=== PATIENT | female | born 1935 | race Caucasian/White ===

== ENCOUNTER 2017-02-09 08:37 | Inpatient (IN) | payer MEDICAID ==
--- NOTE | 2017-02-09 09:05 | EDM.PDOC ---
ED HPI GENERAL MEDICAL PROBLEM - General Chief Complaint: General Stated Complaint: hematuria Time Seen by Provider: 02/09/17 09:00 Source of Information: Reports: Patient, [facility] records History Limitations: Reports: No limitations - History of Present Illness INITIAL COMMENTS - FREE TEXT/NARRATIVE: 81 YO WF with history of atrial fibrillation on Coumadin presents to ER with painless hematuria x 1 day. [facility] reports pt has had an elevated INR x 1 week and coumadin had been held but this am she was noticed to have hematuria. Pt also with recent history of UTI and remote history of kidney stones. Pt has an appointment with her urologist in [place] february 24 for further evaluation but was sent to ER for immediate treatment. Pt denies dizziness, palpatations or shortness of breath. Onset: today Onset Date: 02/09/17 Onset Time: 09:32 Duration: Day(s): (1) Severity: mild Improves with: Reports: None Worsens with: Reports: None Associated Symptoms: Reports: no other symptoms - Related Data Allergies Allergy/AdvReac Type Severity Reaction Status Date / Time cephalexin Allergy Unknown unknown Verified 02/09/17 08:57 amiodarone Allergy Cannot Verified 02/09/17 08:57 Remember metronidazole [From Flagyl] Allergy Cannot Verified 02/09/17 08:57 Remember Home Meds: Home Meds Acetaminophen [Tylenol] 650 mg PO Q4H PRN 09/25/15 [History] Allopurinol [Zyloprim] 150 mg PO DAILY 09/25/15 [History] Cholecalciferol (Vitamin D3) [Vitamin D3] 2,000 unit PO DAILY 09/25/15 [History] Digoxin [Lanoxin] 125 mcg PO DAILY 09/25/15 [History] L.acidoph,Paracasei, B.lactis [Probiotic] 2 each PO BID 09/25/15 [History] Latanoprost [Xalatan 0.005% Ophth Soln] 1 drop EYEBOTH BEDTIME 09/25/15 [History ] Levothyroxine Sodium [Synthroid] 137 mcg PO SUTUTHSA@0700 09/25/15 [History] Magnesium Oxide 500 mg PO 1200,2100 09/25/15 [History] Megestrol [Megace] 40 mg PO QID 09/25/15 [History] Metoprolol Succinate [Toprol XL] 25 mg PO DAILY 09/25/15 [History] Multivitamin [Daily Gabriel] 1 tab PO DAILY@1200 09/25/15 [History] Potassium Chloride [Klor-Con M20] 20 meq PO WITHMEALSANDBED 09/25/15 [History] Antacid- Stock 15 ml PO Q6H PRN 04/22/16 [History] Levothyroxine 150 mcg PO MOWEFR@0700 04/22/16 [History] Phytonadione [Vitamin K] 400 mcg PO DAILY 04/22/16 [History] Cranberry Conc/C/Bacill Coag [Cranberry Tablet] 500 mg PO BID 02/09/17 [History] Past Medical History HEENT History: Reports: Other (see below) Other HEENT History: tinnitus right ear Cardiovascular History: Reports: Afib, Heart Failure, Hypertension Respiratory History: Reports: Bronchitis, recurrent Gastrointestinal History: Reports: Chronic constipation, Chronic diarrhea, Other (see below) Other Gastrointestinal History: ventral hernia Other Genitourinary History: Stage 3 chronic kidney disease Other OB/BYN History: endometrial CA Musculoskeletal History: Reports: Other (see below) Other Musculoskeletal History: muscle weakness Neurological History: Reports: Other (see below) Other Neuro History: dizziness Endocrine/Metabolic History: Reports: Hypothyroidism Oncologic (Cancer) History: Reports: Other (see below) Other Oncologic History: 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 - Infectious Disease History Infectious Disease History: Reports: Chicken pox, Measles, Mumps, Pertussis ( whooping cough) - Past Surgical History HEENT Surgical History: Reports: Cataract surgery Cardiovascular Surgical History: Reports: None GI Surgical History: Reports: None Female Surgical History: Reports: None Social & Family History - Family History Family Medical History: Noncontributory - Tobacco Use Smoking Status *Q: Never Smoker Second Hand Smoke Exposure: No - Recreational Drug Use Recreational Drug Use: No ED ROS GENERAL - Review of Systems Review Of Systems: See Below Constitutional: Reports: no symptoms HEENT: Reports: No symptoms Respiratory: Reports: No Symptoms Cardiovascular: Reports: No symptoms Endocrine: Reports: no symptoms GI/Abdominal: Reports: No symptoms : Reports: hematuria. Denies: dysuria, flank pain, frequency, pain, urgency Musculoskeletal: Reports: no symptoms Skin: Reports: no symptoms Neurological: Reports: No Symptoms Psychiatric: Reports: No symptoms Hematologic/Lymphatic: Reports: no symptoms ED EXAM, GENERAL - Physical Exam Exam: See Below Exam Limited By: No limitations General Appearance: alert, WD/WN, no apparent distress Ears: normal external exam, normal canal, hearing grossly normal, normal TMs Ear Exam: bilateral ear: auricle normal, canal normal, TM normal Nose: normal inspection, normal mucosa, no blood Throat/Mouth: Normal inspection, Normal lips, Normal teeth, Normal gums, Normal oropharynx, Normal voice, No airway compromise Head: atraumatic, normocephalic Neck: normal inspection, supple, non-tender, full range of motion Respiratory/Chest: no respiratory distress, lungs clear, normal breath sounds, no accessory muscle use, chest non-tender Cardiovascular: normal peripheral pulses, regular rate, rhythm, no edema, no gallop, no JVD, no murmur, no rub GI/Abdominal: normal bowel sounds, soft, non tender, no organomegaly, no distention, no abnormal bruit, no mass Extremities: normal inspection, normal range of motion, non-tender, normal capillary refill, no pedal edema Neurological: alert, oriented, CN II-XII intact, normal cognition, normal gait, normal reflexes, no motor/sensory deficits Psychiatric: normal affect, normal mood Skin Exam: Warm, Dry, Intact, Normal color, No rash Lymphatic: no adenopathy EKG INTERPRETATION EKG Date: 02/09/17 Time: 10:23 Rhythm: NSR Rate (beats/min): 87 [place]: normal P-wave: present QRS: normal ST-T: normal QT: normal Comparison: NA - no prior EKG Course - Vital Signs Last Recorded V/S: Last Vital Signs Temp 36.6 C 02/09/17 08:55 Pulse 82 02/09/17 08:55 Resp 18 02/09/17 08:55 BP 129/64 02/09/17 08:55 Pulse Ox 97 02/09/17 08:55 - Orders/Labs/Meds Orders: Active Orders 24 hr Category Date Time Status EKG 12 Lead [EK] Routine Ther 02/09/17 10:15 Stop Req Medication Orders Sodium Chloride (Normal Saline) 1,000 mls @ 125 mls/hr IV ASDIRECTED MADIE Nitrofurantoin Macrocrystals (Macrobid) 100 mg PO BID MADIE Phytonadione (Aquamephyton) 5 mg SUBCUT ONETIME ONE Stop: 02/09/17 11:24 Sodium Chloride (Syrex Flush) 5 ml FLUSH Q8HR PRN PRN Reason: Keep Vein Open Labs: Laboratory Tests 02/09/17 02/09/17 02/09/17 Range/Units 09:00 09:00 09:00 WBC 13.4 H (5.0-10.0) 10^3/uL RBC 3.57 L (3.80-5.50) 10^6/uL Hgb 10.2 L (12.0-16.0) g/dL Hct 33.2 L (37.0-47.0) % MCV 93.0 H (82.0-92.0) fL MCH 28.5 (27.0-31.0) pg MCHC 30.7 L (32.0-36.0) g/dL RDW 15.3 H (11.5-14.5) % Plt Count 511 H (150-300) 10^3/uL MPV 8.5 (7.4-10.4) fL Neut % (Auto) 68.5 (50.0-70.0) % Lymph % (Auto) 24.7 (20.0-40.0) % Randall % (Auto) 6.8 (2.0-8.0) % Add Manual Diff Yes Neutrophils % (Manual) 70 (50-70) % Lymphocytes % (Manual) 24 (20-40) % Monocytes % (Manual) 5 (2-8) % Eosinophils % (Manual) 1 (1-3) % Basophils % (Manual) 0 (0-1) % PT (8.9-11.4) SEC APTT 93.5 H* (20.8-31.2) SEC Sodium 136 (136-145) mmol/L Potassium 6.0 H (3.3-5.3) mmol/L Chloride 107 (98-115) mmol/L Carbon Dioxide 14.5 L (21.0-32.0) mmol/L BUN 35 H (6-25) mg/dL Creatinine 2.87 H (0.51-1.17) mg/dL Est Cr Clr Drug Dosing TNP Estimated GFR (MDRD) 16 mL/min Glucose 68 L (70-110) mg/dL Calcium 9.1 (8.7-10.3) mg/dL Total Bilirubin 0.3 (0.2-1.0) mg/dL AST 23 (15-37) U/L ALT 13 (12-78) U/L Alkaline Phosphatase 76 (46-116) IU/L Total Protein 7.8 (6.4-8.2) g/dL Albumin 2.50 L (3.00-4.80) g/dL Specimen Type Urine Color (YELLOW) Urine Appearance (CLEAR) Urine pH (5.0-9.0) Ur Specific [place] (1.005-1.030) Urine Protein (NEGATIVE) mg/dL Urine Glucose (UA) (NEGATIVE) mg/dL Urine Ketones (NEGATIVE) mg/dL Urine Occult Blood (NEGATIVE) Urine Nitrite (NEGATIVE) Urine Bilirubin (NEGATIVE) Urine Urobilinogen (0.2-1.0) E.U./dL Ur Leukocyte Esterase (NEGATIVE) Urine RBC /HPF Urine WBC /HPF Ur Epithelial Cells /LPF Urine Bacteria (NONE TO FEW) /HPF 02/09/17 02/09/17 Range/Units 09:00 10:00 WBC (5.0-10.0) 10^3/uL RBC (3.80-5.50) 10^6/uL Hgb (12.0-16.0) g/dL Hct (37.0-47.0) % MCV (82.0-92.0) fL MCH (27.0-31.0) pg MCHC (32.0-36.0) g/dL RDW (11.5-14.5) % Plt Count (150-300) 10^3/uL MPV (7.4-10.4) fL Neut % (Auto) (50.0-70.0) % Lymph % (Auto) (20.0-40.0) % Randall % (Auto) (2.0-8.0) % Add Manual Diff Neutrophils % (Manual) (50-70) % Lymphocytes % (Manual) (20-40) % Monocytes % (Manual) (2-8) % Eosinophils % (Manual) (1-3) % Basophils % (Manual) (0-1) % PT > 125.0 H (8.9-11.4) SEC APTT (20.8-31.2) SEC Sodium (136-145) mmol/L Potassium (3.3-5.3) mmol/L Chloride (98-115) mmol/L Carbon Dioxide (21.0-32.0) mmol/L BUN (6-25) mg/dL Creatinine (0.51-1.17) mg/dL Est Cr Clr Drug Dosing Estimated GFR (MDRD) mL/min Glucose (70-110) mg/dL Calcium (8.7-10.3) mg/dL Total Bilirubin (0.2-1.0) mg/dL AST (15-37) U/L ALT (12-78) U/L Alkaline Phosphatase (46-116) IU/L Total Protein (6.4-8.2) g/dL Albumin (3.00-4.80) g/dL Specimen Type Urinvoid Urine Color Red H (YELLOW) Urine Appearance Cloudy H (CLEAR) Urine pH 5.5 (5.0-9.0) Ur Specific [place] 1.015 (1.005-1.030) Urine Protein >=300 H (NEGATIVE) mg/dL Urine Glucose (UA) Negative (NEGATIVE) mg/dL Urine Ketones Trace H (NEGATIVE) mg/dL Urine Occult Blood Large H (NEGATIVE) Urine Nitrite Negative (NEGATIVE) Urine Bilirubin Large H (NEGATIVE) Urine Urobilinogen 1.0 (0.2-1.0) E.U./dL Ur Leukocyte Esterase Large H (NEGATIVE) Urine RBC Packed /HPF Urine WBC Packed /HPF Ur Epithelial Cells Occasional /LPF Urine Bacteria Moderate H (NONE TO FEW) /HPF Meds: Medications Generic Name Dose Route Start Last Admin Trade Name Freq PRN Reason Stop Dose Admin Sodium Chloride 1,000 mls @ 125 mls/hr 02/09/17 11:30 Normal Saline IV ASDIRECTED [facility] Nitrofurantoin Macrocrystals 100 mg 02/09/17 11:30 Macrobid PO BID MADIE Phytonadione 5 mg 02/09/17 11:23 Aquamephyton SUBCUT 02/09/17 11:24 ONETIME ONE Sodium Chloride 5 ml 02/09/17 11:19 Syrex Flush FLUSH Q8HR PRN Keep Vein Open Departure - Departure Time of Disposition: 11:17 Disposition: Admitted As Inpatient 66 Condition: fair Clinical Impression: Blood coagulation disorder, Renal insufficiency, Hyperkalemia Urinary tract infection Qualifiers: Hematuria presence: with hematuria - My Orders Last 24 Hours: My Active Orders 02/09/17 10:15 EKG 12 Lead [EK] Routine - Assessment/Plan Last 24 Hours: My Active Orders 02/09/17 10:15 EKG 12 Lead [EK] Routine Assessment:: 1. elevated INR 2. hyperkalemia secondary to supplemental potassium 3. renal insufficiency 4. urinary tract infection 5. leukocytosis Plan: 1. admit for further management 2. repeat labs in am 3. start macrobid 100mg PO BID 4. vitamin K 5mg SQ now 5. IVF NS at 100cc/hr
[2017-02-09 09:35] LABS: CHLORIDE,CL 107 mmol/L (98-115); SODIUM,NA 136 mmol/L (136-145)
[2017-02-09] MEDS ORDERED: Nitrofurantoin Monohydrate/Macrocrystalline 100 MG Cap PO SCH (11:30)
[2017-02-09] MEDS: Sodium Chloride 0.9% 1,000 ML IV SCH ×2 (11:45→20:27)
[2017-02-09] MEDS ORDERED: Levofloxacin/Dextrose 5%-Water 500 MG in Premix Bag 1 BAG IV ONE (12:18)
[2017-02-09] MEDS ORDERED: Acetaminophen 325 MG Tab PO PRN (12:20)
[2017-02-09] MEDS ORDERED: Aluminum Hydroxide/Magnesium Hydroxide/Simethicone Susp 30 ML Cup PO PRN (12:20)
[2017-02-09] MEDS ORDERED: Lidocaine 2% 100 MG/5 ML Syringe IVPUSH PRN (13:35)
[2017-02-09] MEDS ORDERED: Atropine 0.1 MG/ML 10 ML Syringe IVPUSH PRN (13:35)
[2017-02-09] MEDS ORDERED: EPINEPHrine 1:10,000 1 MG/10 ML Syringe IVPUSH PRN (13:35)
[2017-02-09] MEDS ORDERED: Nitroglycerin 0.4 MG Tab.SL SL PRN (13:35)
[2017-02-09] MEDS: Megestrol 40 MG Tab PO SCH ×3 (14:08→20:24)
[2017-02-09] MEDS: Digoxin 125 MCG Tab PO SCH (16:41)
[2017-02-09] MEDS: Latanoprost 0.005% Ophth Soln 2.5 ML Bottle EYEBOTH SCH (20:24)
[2017-02-09] MEDS: Magnesium Oxide 500 MG Tab PO SCH (20:24)
[2017-02-10] MEDS: Sodium Chloride 0.9% 1,000 ML IV SCH (04:10)
[2017-02-10] MEDS ORDERED: Levothyroxine 25 MCG Tab PO SCH (07:00)
[2017-02-10] MEDS ORDERED: Levothyroxine 112 MCG Tab PO SCH ×2 (07:00)
[2017-02-10] MEDS: Digoxin 125 MCG Tab PO SCH (08:24)
[2017-02-10] MEDS: Megestrol 40 MG Tab PO SCH ×4 (08:30→21:00)
[2017-02-10] MEDS: Metoprolol Succinate 25 MG Tab.ER PO SCH (08:30)
[2017-02-10] MEDS ORDERED: Digoxin 125 MCG Tab PO SCH (09:00)
[2017-02-10] MEDS: Sodium Chloride 0.9% 5 ML Syringe FLUSH PRN (09:42)
--- NOTE | 2017-02-10 10:48 | PCM.HP ---
H&P History of Present Illness - General Date of Service: 02/10/17 Admit Problem/Dx: Admission Diagnosis/Problem Admission Diagnosis/Problem Coagulation disorder Source of Information: Patient, Old records, Provider, RN History Limitations: Reports: No limitations - History of Present Illness Initial Comments - Free Text/Narative: This 81-year-old very polite female was admitted yesterday due to hematuria along with nosebleed she has had for about a day. She has had elevated INR is since she was started on Bactrim for urinary tract infection although her Coumadin has been held. she also has a history of renal stones and she was to see urology soon for this. - Related Data Allergies/Adverse Reactions: Allergies Allergy/AdvReac Type Severity Reaction Status Date / Time cephalexin Allergy Unknown unknown Verified 02/09/17 08:57 amiodarone Allergy Cannot Verified 02/09/17 08:57 Remember metronidazole [From Flagyl] Allergy Cannot Verified 02/09/17 08:57 Remember Home Medications: Home Meds Acetaminophen [Tylenol] 650 mg PO Q4H PRN 09/25/15 [History] Allopurinol [Zyloprim] 150 mg PO DAILY 09/25/15 [History] Cholecalciferol (Vitamin D3) [Vitamin D3] 2,000 unit PO DAILY 09/25/15 [History] Digoxin [Lanoxin] 125 mcg PO DAILY 09/25/15 [History] L.acidoph,Paracasei, B.lactis [Probiotic] 2 each PO BID 09/25/15 [History] Latanoprost [Xalatan 0.005% Ophth Soln] 1 drop EYEBOTH BEDTIME 09/25/15 [History ] Levothyroxine Sodium [Synthroid] 137 mcg PO SUTUTHSA@0700 09/25/15 [History] Magnesium Oxide 500 mg PO 1200,2100 09/25/15 [History] Megestrol [Megace] 40 mg PO QID 09/25/15 [History] Metoprolol Succinate [Toprol XL] 25 mg PO DAILY 09/25/15 [History] Multivitamin [Daily Gabriel] 1 tab PO DAILY@1200 09/25/15 [History] Potassium Chloride [Klor-Con M20] 20 meq PO WITHMEALSANDBED 09/25/15 [History] Antacid- Stock 15 ml PO Q6H PRN 04/22/16 [History] Levothyroxine 150 mcg PO MOWEFR@0700 04/22/16 [History] Phytonadione [Vitamin K] 400 mcg PO DAILY 04/22/16 [History] Cranberry Conc/C/Bacill Coag [Cranberry Tablet] 500 mg PO BID 02/09/17 [History] Past Medical History HEENT History: Reports: Other (see below) Other HEENT History: tinnitus right ear Cardiovascular History: Reports: Afib, Heart Failure, Hypertension Respiratory History: Reports: Bronchitis, recurrent Gastrointestinal History: Reports: Chronic constipation, Chronic diarrhea, Other (see below) Other Gastrointestinal History: ventral hernia Genitourinary History: Reports: Renal calculus Other Genitourinary History: Stage 3 chronic kidney disease Other OB/BYN History: endometrial CA Musculoskeletal History: Reports: Other (see below) Other Musculoskeletal History: muscle weakness Neurological History: Reports: Other (see below) Other Neuro History: dizziness Endocrine/Metabolic History: Reports: Hypothyroidism Hematologic History: Reports: None Immunologic History: Reports: None Oncologic (Cancer) History: Reports: Other (see below) Other Oncologic History: 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 - Infectious Disease History Infectious Disease History: Reports: Chicken pox, Measles, Mumps, Pertussis ( whooping cough) - Past Surgical History HEENT Surgical History: Reports: Cataract surgery Cardiovascular Surgical History: Reports: None GI Surgical History: Reports: None Female Surgical History: Reports: None Social & Family History - Family History Cardiac: Reports: None Respiratory: Reports: None GI: Reports: None : Reports: None OBGYN: Reports: None Musculoskeletal: Reports: None Neurological: Reports: None Psychiatric: Reports: None Endocrine/Metabolic: Reports: None Hematologic: Reports: None Immunologic: Reports: None Dermatologic: Reports: None Oncologic: Reports: None Other Oncologic Family History: Brother of rectal cancer - Tobacco Use Smoking Status *Q: Never Smoker Second Hand Smoke Exposure: No - Caffeine Use Caffeine Use: Reports: Coffee - Recreational Drug Use Recreational Drug Use: No H&P Review of Systems - Review of Systems: Review Of Systems: See Below General: Reports: no symptoms HEENT: Reports: other (Mild bloody nose only, ) Pulmonary: Reports: No Symptoms Cardiovascular: Reports: no symptoms Gastrointestinal: Denies: Abdominal pain, Anorexia, Bloody stool, Melena, Nausea , Vomiting Genitourinary: Reports: hematuria (Hematuria improving--gross blood on admission now light pink only) Musculoskeletal: Reports: no symptoms Skin: Reports: pallor Psychiatric: Denies: confusion Neurological: Reports: Tremors (Resting tremor), Difficulty Walking. Denies: Change in Speech Hematologic/Lymphatic: Reports: easy bleeding, easy bruising Immunologic: Reports: no symptoms Exam - Exam Exam: See Below - Vital Signs Vital Signs: Last Vital Signs Temp 97.2 F 02/10/17 07:00 Pulse 82 02/10/17 08:30 Resp 16 02/10/17 07:00 BP 128/60 02/10/17 08:30 Pulse Ox 100 02/10/17 09:00 Weight: 99 lb 12.8 oz - Exam Quality Assessment: No: supplemental oxygen General: alert, oriented, cooperative. No: mild distress HEENT: Mucosa moist & pink, Nares patent (No signs of epistaxis) Neck: supple, trachea midline, 2 Lungs: Crackles (Fine crackles left base) Cardiovascular: regular rate, regular rhythm, normal S1, normal S2. No: irregular rhythm Abdomen: normal bowel sounds, soft. No: tenderness (Female) Exam: Deferred Back Exam: No: CVA tenderness (L), CVA tenderness (R) Extremities: No: edema Skin: warm, dry, intact Neurological: cranial nerves intact, normal speech Neuro Extensive - Mental Status: alert, oriented x3, normal mood/affect, normal cognition Neuro Extensive - Motor, Sensory, Reflexes: No: facial palsy (L), facial palsy ( R) Psychiatric: alert, normal affect, normal mood - Patient Data Lab Results last 24 hrs: Laboratory Results - last 24 hr 02/09/17 02/10/17 02/10/17 Range/Units 19:10 07:30 07:30 WBC 10.6 H (5.0-10.0) 10^3/uL RBC 3.22 L (3.80-5.50) 10^6/uL Hgb 9.6 L (12.0-16.0) g/dL Hct 30.4 L (37.0-47.0) % MCV 94.3 H (82.0-92.0) fL MCH 29.7 (27.0-31.0) pg MCHC 31.5 L (32.0-36.0) g/dL RDW 15.6 H (11.5-14.5) % Plt Count 543 H (150-300) 10^3/uL MPV 7.6 (7.4-10.4) fL Neut % (Auto) 67.6 (50.0-70.0) % Lymph % (Auto) 23.6 (20.0-40.0) % Clarke % (Auto) 6.0 (2.0-8.0) % Eos % (Auto) 2.1 (1.0-3.0) % Baso % (Auto) 0.7 (0.0-1.0) % Neut # (Auto) 7.2 H (2.5-7.0) 10^3/uL Lymph # (Auto) 2.5 (1.0-4.0) 10^3/uL Clarke # (Auto) 0.6 (0.1-0.8) 10^3/uL Eos # (Auto) 0.2 (0.1-0.3) 10^3/uL Baso # (Auto) 0.1 (0.0-0.1) 10^3/uL PT > 125.0 H > 125.0 H (8.9-11.4) SEC INR TNP APTT 84.1 H* (20.8-31.2) SEC Sodium (136-145) mmol/L Potassium (3.3-5.3) mmol/L Chloride (98-115) mmol/L Carbon Dioxide (21.0-32.0) mmol/L BUN (6-25) mg/dL Creatinine (0.51-1.17) mg/dL Est Cr Clr Drug Dosing mL/min Estimated GFR (MDRD) mL/min Glucose (70-110) mg/dL Calcium (8.7-10.3) mg/dL 02/10/17 Range/Units 07:30 WBC (5.0-10.0) 10^3/uL RBC (3.80-5.50) 10^6/uL Hgb (12.0-16.0) g/dL Hct (37.0-47.0) % MCV (82.0-92.0) fL MCH (27.0-31.0) pg MCHC (32.0-36.0) g/dL RDW (11.5-14.5) % Plt Count (150-300) 10^3/uL MPV (7.4-10.4) fL Neut % (Auto) (50.0-70.0) % Lymph % (Auto) (20.0-40.0) % Clarke % (Auto) (2.0-8.0) % Eos % (Auto) (1.0-3.0) % Baso % (Auto) (0.0-1.0) % Neut # (Auto) (2.5-7.0) 10^3/uL Lymph # (Auto) (1.0-4.0) 10^3/uL Clarke # (Auto) (0.1-0.8) 10^3/uL Eos # (Auto) (0.1-0.3) 10^3/uL Baso # (Auto) (0.0-0.1) 10^3/uL PT (8.9-11.4) SEC INR APTT (20.8-31.2) SEC Sodium 139 (136-145) mmol/L Potassium 5.2 (3.3-5.3) mmol/L Chloride 111 (98-115) mmol/L Carbon Dioxide 16.1 L (21.0-32.0) mmol/L BUN 35 H (6-25) mg/dL Creatinine 2.63 H (0.51-1.17) mg/dL Est Cr Clr Drug Dosing 11.99 mL/min Estimated GFR (MDRD) 17 mL/min Glucose 73 (70-110) mg/dL Calcium 8.5 L (8.7-10.3) mg/dL Result Diagrams: 02/10/17 07:30 02/10/17 07:30 *Q Meaningful Use (ADM) - VTE *Q VTE Criteria *Q: - Stroke *Q Stroke Criteria *Q: - AMI *Q AMI Criteria *Q: Problem List Initiated/Reviewed/Updated: Yes Orders Last 24hrs: Active Orders 24 hr Category Date Time Status Patient Status [ADT] Routine ADT 02/09/17 11:19 Ordered Bedrest Bathroom Privileges [RC] .PRN Care 02/09/17 11:19 Active Cardiac Monitoring [RC] 0300,0700,1100,1500,1900,2300 Care 02/09/17 11:18 Active Oxygen Therapy [RC] 0900 Care 02/09/17 11:19 Active Peripheral IV Care [RC] 0100,0900,1700 Care 02/09/17 11:22 Active Vital Signs [RC] 0300,0700,1100,1500,1900,2300 Care 02/09/17 11:19 Active Regular Diet [DIET] Diet 02/09/17 Lunch Active CULTURE URINE [RM] Stat Lab 02/09/17 10:30 Received INR,PT,PROTHROMBIN TIME [COAG] AM Lab 02/10/17 07:30 Results PTT,PARTIAL THROMBOPLSTIN TIME [COAG] AM Lab 02/10/17 07:30 Results Acetaminophen [Tylenol] Med 02/09/17 12:20 Active 650 mg PO Q4H PRN Alum Hydrox/Mag Hydrox/Simeth [Mag-Al Plus] Med 02/09/17 12:20 Active 15 ml PO Q6H PRN Digoxin [Lanoxin] Med 02/09/17 17:00 Active 62.5 mcg PO DAILY Latanoprost [Xalatan 0.005% Ophth Soln] Med 02/09/17 21:00 Active 0 ml EYEBOTH BEDTIME Levofloxacin/Dextrose 5%-Water [Levaquin in D5W 250 MG/ Med 02/11/17 09:00 Active 50 ML] 250 mg Premix Bag 1 bag IV Q48H Levothyroxine Med 02/10/17 07:00 Active 112 mcg PO SUTUTHSA@0700 Levothyroxine Med 02/10/17 07:00 Active 25 mcg PO SuTuThSa@0700 Levothyroxine [Synthroid] Med 02/11/17 07:00 Active 150 mcg PO MOWEFR@0700 Magnesium Oxide Med 02/09/17 21:00 Active 500 mg PO 1200,2100 Megestrol [Megace] Med 02/09/17 13:00 Active 40 mg PO QID Metoprolol Succinate [Toprol XL] Med 02/10/17 09:00 Active 25 mg PO DAILY Sodium Chloride 0.9% [Normal Saline] 1,000 ml Med 02/09/17 11:30 Active IV ASDIRECTED Sodium Chloride 0.9% [Syrex Flush] Med 02/09/17 11:19 Active 5 ml FLUSH Q8HR PRN Peripheral IV Insertion Adult [OM.PC] Routine Oth 04/19/17 11:19 Ordered Resuscitation Status Routine Resus Stat 02/09/17 11:19 Ordered Medication Orders Acetaminophen (Tylenol) 650 mg PO Q4H PRN PRN Reason: Pain Al Hydroxide/Mg Hydroxide (Mag-Al Plus) 15 ml PO Q6H PRN PRN Reason: functional dyspepsia Digoxin (Lanoxin) 62.5 mcg PO DAILY [facility] Last Admin: 02/10/17 08:24 Dose: 62.5 mcg Admin: 02/09/17 16:41 Dose: 62.5 mcg Sodium Chloride (Normal Saline) 1,000 mls @ 125 mls/hr IV ASDIRECTED [facility] Last Admin: 02/10/17 04:10 Dose: 125 mls/hr Infusion: 02/10/17 04:10 Dose: 125 mls/hr Admin: 02/09/17 20:27 Dose: 125 mls/hr Infusion: 02/09/17 19:45 Dose: 125 mls/hr Admin: 02/09/17 11:45 Dose: 125 mls/hr Levofloxacin/Dextrose 250 mg/ (Premix) 50 mls @ 50 mls/hr IV Q48H [facility] Latanoprost (Xalatan 0.005% Oph Soln) 0 ml EYEBOTH BEDTIME [facility] Last Admin: 02/09/17 20:24 Dose: Not Given Levothyroxine Sodium (Synthroid) 150 mcg PO MOWEFR@0700 [facility] Levothyroxine Sodium (Levothyroxine) 25 mcg PO SuTuThSa@0700 [facility] Last Admin: 02/10/17 06:32 Dose: 25 mcg Levothyroxine Sodium (Levothyroxine) 112 mcg PO SUTUTHSA@0700 [facility] Last Admin: 02/10/17 06:32 Dose: 112 mcg Magnesium Oxide (Magnesium Oxide) 500 mg PO 1200,2100 [facility] Last Admin: 02/09/17 20:24 Dose: 500 mg Megestrol Acetate (Megace) 40 mg PO QID [facility] Last Admin: 02/10/17 08:30 Dose: 40 mg Admin: 02/09/17 20:24 Dose: 40 mg Admin: 02/09/17 16:41 Dose: 40 mg Admin: 02/09/17 14:08 Dose: 40 mg Metoprolol Succinate (Toprol Xl) 25 mg PO DAILY [facility] Last Admin: 02/10/17 08:30 Dose: 25 mg Sodium Chloride (Syrex Flush) 5 ml FLUSH Q8HR PRN PRN Reason: Keep Vein Open Last Admin: 02/10/17 09:42 Dose: 5 ml Assessment/Plan Comment:: HISTORY OF PRESENT ILLNESS This 81-year-old very polite female was admitted yesterday due to hematuria along with nosebleed she has had for about a day. She has had elevated INR is since she was started on Bactrim for urinary tract infection although her Coumadin has been held. she also has a history of renal stones and she was to see urology soon for this. CT dated January 11 indicated SEVERE LEFT HYDRONEPHROSIS SECONDARY TO AN APPARENT 4 X 5 X 6 MM CALCULUS IN THE DISTAL LEFT URETER. MILD RIGHT HYDRONEPHROSIS, ETIOLOGY UNDETERMINED. NONOBSTRUCTIVE CALCULI IN THE LOWER POLE OF THE RIGHT KIDNEY. Immediate considerations Potassium level high 6.0 on admission. Telemetry. Hold all potassium supplementation. Vitamin K administration Telemetry IMPRESSION/PLAN Hematuria, much improved. Holding Coumadin. Vitamin K given x2 yesterday. Elevated INR not able to detect due to elevated PT. No hemodynamic instability. No active signs of bleeding now. Patient would be good candidate for novel anticoagulation. Will send rx for Eliquis 2.5mg renal dose BID--will need prior auth. patient Urinary tract infection, renal dose Levaquin Chronic kidney disease, stage III--eloquis and Levaquin renal dose Proximal atrial fibrillation; sinus rhythm now. NTD2DQ2-HGOo score high risk-- 4. HAS-BLED scrore also high. Will see if she is candidate for Eliquis since she has marked medication reactions requiring hospitalization. Will need prior auth. I wi Renal Stones; this is being followed by Dr. Barry Montemayor Middleton she has upcoming appointments CHRONIC MEDICAL CONDITIONS Hypertension, controlled with metoprolol Hyperlipidemia Hypothyroidism, on thyroid replacement therapy Depression Gout; on allopurinol--renal dose History is of GI bleed Osteoporosis, with multiple old pelvic fractures, in light of her renal stones will not consider calcium at this time. Severe diffuse atherosclerotic disease as evidence of recent CT Abdominal wall herniation, noted on CT History of malignancy of the uterus and is followed by Dr. Morales. The patient has an appointment coming up with him next month. Overall plan today, hold Coumadin. Potassium normal can removed telemetry, will place on Eliquis as soon as we stabilize her INR. Prior off will be sent to her pharmacy for this. Renal dose will be 2.5 mg by mouth twice a day. Continue IV renal dose Levaquin. Vitamin K repeat today 10mg sQ
[2017-02-10] MEDS: Magnesium Oxide 500 MG Tab PO SCH ×2 (12:06→21:00)
[2017-02-10] MEDS: Latanoprost 0.005% Ophth Soln 2.5 ML Bottle EYEBOTH SCH (21:00)
[2017-02-11] MEDS ORDERED: Levothyroxine 100 MCG Tab PO SCH (07:00)
[2017-02-11 07:31] VITALS: BP 101/47
[2017-02-11] MEDS: Digoxin 125 MCG Tab PO SCH (08:25)
[2017-02-11] MEDS: Metoprolol Succinate 25 MG Tab.ER PO SCH (08:33)
[2017-02-11] MEDS: Megestrol 40 MG Tab PO SCH ×2 (08:34→12:50)
[2017-02-11] MEDS: Sodium Chloride 0.9% 5 ML Syringe FLUSH PRN (08:41)
[2017-02-11] MEDS ORDERED: Levofloxacin/Dextrose 5%-Water 250 MG in Premix Bag 1 BAG IV SCH (09:00)
[2017-02-11] MEDS: Magnesium Oxide 500 MG Tab PO SCH (12:50)
--- NOTE | 2017-02-14 08:12 | DISCH ---
FINAL DIAGNOSES: 1. Hematuria and epistaxis due to elevated INR level, much improved, resolved. INR 1.2 on discharge. 2. Urinary tract infection, clinically improved. 3. Chronic kidney disease. 4. Paroxysmal atrial fibrillation, sinus rhythm now, CHADS2-VASc score high risk. HAS-BLED score also high. The patient prior authorization placed in for Eliquis. 5. Renal stones being followed by Dr. Reddy, [facility] with upcoming appointments for this. CHRONIC MEDICAL CONDITIONS: 1. Hypertension. 2. Hyperlipidemia. 3. Hypothyroidism, she is on thyroid replacement therapy. 4. Depression. 5. Gout. She is on renal dose allopurinol. 6. History of GI bleed. 7. Osteoporosis with multiple old pelvic fractures. 8. Severe diffuse atherosclerotic disease as evidenced on recent CT. 9. Abdominal wall herniation as noted on CT. 10.History of malignancy of the uterus, is followed by Dr. Morales. She has upcoming appointment for this. HISTORY: This is an 81-year-old female was admitted due to hematuria along with nose bleed that she had for about a day. She had had significantly elevated INRs since she was started on Bactrim for her urinary tract infection. She is a resident of [facility] in [place]. Her Coumadin had been held a few days prior to admission. She had history of renal stones and then will soon see Urology for this. HOSPITAL COURSE: Hospital course went fairly well. We did hold her Coumadin. We gave her vitamin K, both subcutaneous and then oral. Her INR eventually came down to normal levels and then subtherapeutic levels. Her hematuria was much improved, only light pink on discharge; however, she never had no nose bleeds. She did have a high potassium level on admission at 6.0. She was placed on telemetry. I held all potassium supplements on admission, and on discharge, there was no aberrancy or any concerning telemetry reading strips. For her urinary tract infection, we stopped Bactrim as this for her would be extremely attenuating medication inducing high levels of INR. We did place her on renal dose Levaquin. She clinically improved. She does have chronic kidney disease, stage 3, although she has a history of paroxysmal atrial fibrillation, she was in sinus rhythm throughout her hospital stay. LABORATORY DATA: White count on discharge 10.6, it was 13.4 on admission. Hemoglobin 9.6, hematocrit 30.4, INR 1.4 with PTT of 84. Sodium and potassium are now normal on discharge. BUN 35 with creatinine 2.63. All medications or renal dosed. Calcium 8.5, corresponding with correction of albumin. Urinalysis on admission was red and cloudy, greater than 300 protein, moderate bacteria with large amount of occult blood and ketones, and large amount of esterase. PHYSICAL EXAMINATION: VITAL SIGNS: On discharge, blood pressure 101/47, heart rate 82 and regular, temperature 97.8, pulse oximetry 99 on room air, respiratory rate was 20. MEDICATIONS: Medication adjustments and deletions: Discontinue potassium level. Prior authorization for Eliquis 2.5 mg p.o. b.i.d. in light of her paroxysmal atrial fibrillation. She will have to be put on low- dose Coumadin, INR to manage that. Hopefully, we can get her on Eliquis. DISPOSITION: I feel the patient is receiving no further benefit from the hospital here, she will be transferred back to [facility]. Prior authorization has been placed in, they are working on this for Eliquis. She can begin this medication as long as her INR is below 2.0. Nursing staff to monitor for any worsening hematuria or any nosebleed or any hemodynamic instability or bloody stools. MEDICAL DECISION MAKIN minutes was spent on this discharge, this planning, documentation, pharmacy consultation, working with prior authorization. /[id number]/MODL
== END 2017-02-11 12:07 | DRG 696 ==
LOC: KA.ED 08:37 → KA.MS 10:45
PROVIDERS: ADMIT Physician Assistant Medical; ATTEND Nurse Practitioner Family
DX: R31.9 Hematuria, unspecified (principal); D68.9 Coagulation defect, unspecified; E87.5 Hyperkalemia; R04.0 Epistaxis; I50.9 Heart failure, unspecified; N39.0 Urinary tract infection, site not specified; I12.9 Hypertensive chronic kidney disease with stage 1 through stage 4 chronic kidney disease, or unspecified chronic kidney disease; N18.3 Chronic kidney disease, stage 3 (moderate); I48.91 Unspecified atrial fibrillation; N20.0 Calculus of kidney; E78.5 Hyperlipidemia, unspecified; E03.9 Hypothyroidism, unspecified; F32.9 Major depressive disorder, single episode, unspecified; M10.9 Gout, unspecified; M81.0 Age-related osteoporosis without current pathological fracture; I70.90 Unspecified atherosclerosis; K43.9 Ventral hernia without obstruction or gangrene; Z85.42 Personal history of malignant neoplasm of other parts of uterus; Z88.8 Allergy status to other drugs, medicaments and biological substances; Z79.899 Other long term (current) drug therapy
CPT/HCPCS: 36415; 80048; 80053; 81001; 85025; 85610; 85730; 87086; 87088; 87186; 93005; 99285; A9270-GY; J1956; J3430; J7030